=== PATIENT | male | born 1965 | race Two or more races ===

== ENCOUNTER 2021-12-07 00:35 | Emergency (ER) | payer MEDICAID, OTHER ==
[~2021-12-07] VITALS: Ht 167.6 cm; Wt 86.2 kg
--- NOTE | 2021-12-07 01:00 | NUR ---
PATIENT BIBRA 87 FROM [facility] FOR C/O DRY MOUTH AND CHEST PAIN RAD TO LEFT SIDE. PATIENT IS A/O X 4, RR EVEN AND UNALBORED, NO SOB NOTED. PATIENT CONNECTED TO MAT LINKER AND POX.
--- NOTE | 2021-12-07 01:01 | NUR ---
URINE COLLECTED AND SENT TO LAB
[2021-12-07] MEDS ORDERED: ASPIRIN 325 MG TABLET PO ONE (01:30)
[2021-12-07 01:37] LABS: BASOPHILS % (AUTO) 0.5 % (0.0-2.0); EOSINOPHILS % (AUTO) 3.8 % (0.0-6.0); HEMATOCRIT 45 % (39-51); HEMOGLOBIN 15.5 g/dL (13.5-17.5); LYMPHOCYTES # (AUTO) 1.4 K/uL (0.8-4.8); LYMPHOCYTES % (AUTO) 30.4 % (20.0-44.0); MEAN CORPUSCULAR HGB CONC 34 g/dl (31.0-36.0); MEAN CORPUSCULAR VOLUME 91 fL (80-96); MONOCYTES # (AUTO) 0.4 K/uL (0.1-1.30); NEUTROPHILS # (AUTO) 2.5 K/uL (1.8-8.9); NEUTROPHILS % (AUTO) 56.3 % (43.0-81.0); PLATELET COUNT (AUTO) 168 K/uL (150-450); WHITE BLOOD COUNT (AUTO) 4.5 K/uL (4.3-11.0)
[2021-12-07] MEDS ORDERED: ASPIRIN 325 MG TABLET ONE (01:41)
[2021-12-07 02:23] LABS: CARBON DIOXIDE 28 mmol/L (21-32); CHLORIDE 102 mmol/L (98-107); CREATININE 1.1 mg/dL (0.6-1.3); GLUCOSE 101 mg/dL (74-106); POTASSIUM 3.5 mmol/L (3.5-5.1); SODIUM SERUM 139 mmol/L (136-145); UREA NITROGEN, BLOOD 13 mg/dL (7-18)
[2021-12-07 02:27] LABS: ALANINE AMINOTRANSFERASE 45 U/L (12-78); ALBUMIN 3.4 g/dL (3.4-5.0); ALKALINE PHOSPHATASE 88 U/L (46-116); ASPARTATE AMINOTRANSFERASE 28 U/L (15-37); BILIRUBIN,DIRECT 0.2 mg/dL (0.0-0.2); BILIRUBIN,TOTAL 0.7 mg/dL (0.2-1.0); TOTAL PROTEIN, SERUM 7.1 g/dL (6.4-8.2)
--- NOTE | 2021-12-07 02:27 | NUR ---
CALLED LAB TO FOLLW UP ON TROPONIN, STILL RUNNING PER LAB
--- NOTE | 2021-12-07 02:57 | NUR ---
covid swab done and sent to lab
--- NOTE | 2021-12-07 04:00 | NUR ---
SPOKE TO CARIN AT [facility]. PT IS DISCHARGED FROM THERE
[2021-12-07] MEDS ORDERED: AZIT250T13 PO (04:14)
--- NOTE | 2021-12-07 05:12 | NUR ---
pt is medically stable for D/C. Denied SI/HI. Patient discharged to home in stable condition. Written and verbal after care instructions given. Patient verbalizes understanding of instruction.
[2021-12-07 05:21] VITALS: BP 137/79
== END 2021-12-07 05:22 | disposition home or self-care (01) ==
LOC: ER 00:38
DX: J18.9 Pneumonia, unspecified organism (principal); Z20.822 Contact with and (suspected) exposure to COVID-19; R94.31 Abnormal electrocardiogram [ECG] [EKG]; Z59.01 Sheltered homelessness; R03.0 Elevated blood-pressure reading, without diagnosis of hypertension
CPT/HCPCS: 36415; 71045; 80048; 80076; 83880; 84484; 85025; 85730; 87426; 93005 ×2; 99285; C9803